=== PATIENT | male | born 1960 | race Caucasian/White ===

== ENCOUNTER → 2021-09-19 | Outpatient (CLI) | payer OTHER | END | disposition home or self-care (01) | LOC: RAD 16:18 | PROVIDERS: ATTEND Nurse Practitioner Family | DX: M25.511 Pain in right shoulder (principal) ==

== ENCOUNTER 2021-10-27 15:56 | Emergency (ER) | payer OTHER ==
[2021-10-27] MEDS ORDERED: HYDROCODONE-AC1 EAC1 PO (19:26)
== END 2021-10-27 19:48 | disposition home or self-care (01) ==
LOC: ED 15:56
DX: S22.42XA Multiple fractures of ribs, left side, initial encounter for closed fracture (principal); V89.9XXA Person injured in unspecified vehicle accident, initial encounter; Y93.89 Activity, other specified; Y92.89 Other specified places as the place of occurrence of the external cause; Y99.9 Unspecified external cause status

== ENCOUNTER 2021-11-10 15:51 | Emergency (ER) | payer OTHER ==
[~2021-11-10] VITALS: Wt 97.5 kg
[~2021-11-10 15:51] MED LIST: HYDROCODONE-AC1 EAC1 PO
[2021-11-10 16:33] LABS: BASO # 0.1 10*3/uL (0.0-0.1); BASO % 0.6 % (0.0-1.0); EOS # 0.1 10*3/uL (0.0-0.4); EOS % 0.9 % (1.0-4.0); HEMATOCRIT 47.5 % (42.0-52.0); LYMPH # 0.6 10*3/uL (1.3-4.4); LYMPH % 6.3 % (27.0-41.0); MEAN CORPUSCULAR HGB 29.3 pg (27.0-31.0); MEAN CORPUSCULAR HGB CONC 33.3 g/dl (33.0-37.0); MEAN PLATELET VOLUME 11.2 fl (9.6-12.3); MONO # 0.7 10*3/uL (0.1-1.0); NEUT # 8.5 10*3/uL (2.3-7.9); NEUT % 84.7 % (47.0-73.0); PLATELET COUNT AUTOMATED 238 10*3/uL (130-400); RED CELL DISTRI WIDTH 12.8 % (0-14.5)
[2021-11-10 16:48] LABS: ALBUMIN 3.6 gm/dl (3.1-4.5); ALKALINE PHOSPHATASE 108 U/L (45-117); BUN 24 mg/dl (7-24); CHLORIDE 102 mmol/L (98-107); POTASSIUM 3.8 mmol/L (3.5-5.1); SGOT/AST 16 IU/L (3-35); SGPT/ALT 32 U/L (12-78); SODIUM 136 mmol/L (136-145)
[2021-11-10 17:30] LABS: BILIRUBIN Negative (Negative); BLOOD Negative (Negative); CLARITY Cloudy (Clear); COLOR Yellow (Yellow); GLUCOSE 1+ (Negative); KETONE Negative (Negative); LEUKO ESTERASE Negative (Negative); NITRITE Negative (Negative); UROBILINOGEN 0.2 E.U./dl (0.0-1.0)
[2021-11-10 17:44] LABS: BACTERIA TRACE; MUCOUS 1+; RBC 0-2 rbc/hpf (0-2); URIC ACID CRYSTALS 1+
[2021-11-10] MEDS ORDERED: OMNICEF300 MG PO (21:13)
[2021-11-10] MEDS ORDERED: MECLIZINE HCL25 M2 PO (21:14)
[2021-11-10] MEDS ORDERED: MEDROL DOSEPAK4 MG PO (21:14)
[2021-11-10] MEDS ORDERED: HYDROCODONE-AC1 EAC1 PO (21:15)
== END 2021-11-10 21:36 | disposition home or self-care (01) ==
LOC: ED 15:51
PROVIDERS: Physician Assistant
DX: H92.01 Otalgia, right ear (principal); Z20.822 Contact with and (suspected) exposure to COVID-19; M54.30 Sciatica, unspecified side

== ENCOUNTER → 2022-03-22 | Outpatient (CLI) | payer OTHER ==
[~2022-03-22] MED LIST changes: +MECLIZINE HCL25 M2 PO; +MEDROL DOSEPAK4 MG PO; +OMNICEF300 MG PO
== END | disposition home or self-care (01) ==
LOC: MRI 09:41
PROVIDERS: ATTEND Orthopaedic Surgery
DX: M75.101 Unspecified rotator cuff tear or rupture of right shoulder, not specified as traumatic (principal); M75.41 Impingement syndrome of right shoulder; M67.813 Other specified disorders of tendon, right shoulder

== ENCOUNTER → 2023-06-17 | Outpatient (CLI) | payer OTHER ==
[2023-06-17 11:03] LABS: ALKALINE PHOSPHATASE 74 U/L (46-116); BUN 17 mg/dl (9-23); CHLORIDE 102 mmol/L (98-107); POTASSIUM 4.2 mmol/L (3.4-5.1); SGPT/ALT 27 U/L (10-49)
== END | disposition home or self-care (01) ==
LOC: LAB 00:21
PROVIDERS: ATTEND Nurse Practitioner Primary Care
DX: E11.65 Type 2 diabetes mellitus with hyperglycemia (principal); R39.198 Other difficulties with micturition

== ENCOUNTER → 2024-03-20 | Outpatient (CLI) | payer OTHER | END | disposition home or self-care (01) | LOC: LAB 10:32 | PROVIDERS: ATTEND Urology | DX: R97.20 Elevated prostate specific antigen [PSA] (principal) ==

== ENCOUNTER 2024-04-30 22:01 | Emergency (ER) | payer OTHER ==
[~2024-04-30] VITALS: Wt 88.5 kg
[2024-04-30 23:22] LABS: BILIRUBIN 1+ (Negative); BLOOD 1+ (Negative); CLARITY Turbid (Clear); COLOR Red (Yellow); GLUCOSE 2+ (Negative); KETONE Negative (Negative); LEUKO ESTERASE 2+ (Negative); NITRITE Positive (Negative); SPECIFIC GRAVITY >= 1.030 (1.001-1.030); UROBILINOGEN 0.2 E.U./dl (0.0-1.0)
[2024-04-30 23:36] LABS: RBC TNTC rbc/hpf (0-2); WBC 31-40 wbc/hpf (0-5)
[2024-04-30 23:37] LABS: BACTERIA 2+
[2024-04-30] MEDS ORDERED: Ciprofloxacin Hydrochloride 500 MG TAB PO ONE (23:55)
[2024-05-01] MEDS ORDERED: CIPRO500 MG PO (00:07)
[2024-05-01] MEDS ORDERED: TAMSULOSIN HCL0.4 MG PO (13:53)
[2024-05-01] MEDS ORDERED: JARDIANCE25 MG PO (13:53)
[2024-05-01] MEDS ORDERED: ROSUVASTATIN CA40 MG PO (13:53)
[2024-05-01] MEDS ORDERED: ASPIRIN ADULT L81 M1 PO (13:53)
[2024-05-01] MEDS ORDERED: TRULICITY1.5 MG/0.5 SC (13:53)
[2024-05-01] MEDS ORDERED: BUPROPION HYDR150 M1 PO (13:58)
[2024-05-01] MEDS ORDERED: PAROXETINE HCL40 MG PO (13:58)
== END 2024-05-01 00:20 | disposition home or self-care (01) ==
LOC: ED 22:01
PROVIDERS: Internal Medicine
DX: R33.9 Retention of urine, unspecified (principal); N39.0 Urinary tract infection, site not specified

== ENCOUNTER 2024-05-01 13:36 | Emergency (ER) | payer OTHER ==
[~2024-05-01] VITALS: Ht 182.8 cm; Wt 88.5 kg
[~2024-05-01 13:36] MED LIST changes: +CIPRO500 MG PO
[2024-05-01] MEDS ORDERED: ROSUVASTATIN CA40 MG PO (13:53)
[2024-05-01] MEDS ORDERED: TRULICITY1.5 MG/0.5 SC (13:53)
[2024-05-01] MEDS ORDERED: TAMSULOSIN HCL0.4 MG PO (13:53)
[2024-05-01] MEDS ORDERED: ASPIRIN ADULT L81 M1 PO (13:53)
[2024-05-01] MEDS ORDERED: JARDIANCE25 MG PO (13:53)
[2024-05-01] MEDS ORDERED: PAROXETINE HCL40 MG PO (13:58)
[2024-05-01] MEDS ORDERED: BUPROPION HYDR150 M1 PO (13:58)
== END 2024-05-01 15:02 | disposition home or self-care (01) ==
LOC: ED 13:36
DX: T83.518A Infection and inflammatory reaction due to other urinary catheter, initial encounter (principal); N39.0 Urinary tract infection, site not specified; Z79.2 Long term (current) use of antibiotics; Z79.899 Other long term (current) drug therapy; Z79.82 Long term (current) use of aspirin; Y84.8 Other medical procedures as the cause of abnormal reaction of the patient, or of later complication, without mention of misadventure at the time of the procedure; Y92.89 Other specified places as the place of occurrence of the external cause

== ENCOUNTER → 2025-10-10 | Outpatient (CLI) | payer OTHER ==
[~2025-10-10] MED LIST changes: +ASPIRIN ADULT L81 M1 PO; +BUPROPION HYDR150 M1 PO; +JARDIANCE25 MG PO; +PAROXETINE HCL40 MG PO; +ROSUVASTATIN CA40 MG PO; +TAMSULOSIN HCL0.4 MG PO; +TRULICITY1.5 MG/0.5 SC
== END | disposition home or self-care (01) ==
LOC: LAB 13:46
PROVIDERS: ATTEND Family Medicine
DX: E11.9 Type 2 diabetes mellitus without complications (principal); R79.89 Other specified abnormal findings of blood chemistry